=== PATIENT | female | born 2000 | race Two or more races ===

== ENCOUNTER 2023-02-28 16:45 | Emergency (ER) | payer MEDICAID, SELFPAY ==
[2023-02-28 16:47] VITALS: BP 110/75; PULSE 152; RESP 20; TEMP 37.2; O2SAT 99
--- NOTE | 2023-02-28 17:29 | ED_ITS ---
HPI - Wound/Laceration General Chief Complaint: Wound/Laceration Stated Complaint: WOUND CHECK Time Seen by Provider: 02/28/23 16:52 Source: caregiver and other Source comment: EMS Mode of arrival: ambulance Limitations: other Limitations comment: PT HAS CEREBRAL PALSY. NONVERBAL History of Present Illness HPI narrative: 22-year-old patient from a special care facility for evaluation of a wound from surgery that she had recently. 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 She has when necessary meds. They sent her here because the dressings appeared to be bleeding from the wound. No other information was provided until the aunt got here. She is scheduled for recheck this coming week I believe. There is no perioperative complications at the area was aware of Related Data Allergies Allergy/AdvReac Type Severity Reaction Status Date / Time No Known Drug Allergies Allergy Verified 02/28/23 17:21 PFSH PFS Social History Smoking status: Unknown if ever smoked Exam Narrative Exam Narrative: on arrival she was somewhat agitated just from the transportation here. She was immediately evaluated by myself, turning her on her left side in looking at this extensive surgical incision extending from the thoracic all the way down to the lumbar area. There is no wound dehiscence. Her vital signs were stable with her showing no fever but her heart rate was up initially at 152. There is a very small amount of pinkish colored fluid coming from the lower 3rd of the incision that is consistent with normal postoperative fluid extravasation through her wound. Again there is no dehiscence. There is no fluid pockets palpated as I examine the length of the incision. There is no active bleeding, no clots no bright red blood or dark red blood. There is no evidence of synovitis of the skin. When her and arrived she informs me that this patient is at baseline neurologic: Cognitive functioning. She is smiling and pleasant appears in no discomfort wanted and arrived and we reassured her. A baseline CBC was done I do not leave there is any emergency medical condition and we will discharge her but they're to do frequent dressing changes. Constitutional Vital Signs - 24 hr 02/28/23 16:47 Temperature 99 F Pulse Rate [Monitor] 152 H Respiratory Rate 20 Blood Pressure [Left Arm] 110/75 Pulse Oximetry 99 Oxygen Delivery Method Room Air Course Vital Signs Vital signs: Vital Signs Temperature 99 F 02/28/23 16:47 Pulse Rate 152 H 02/28/23 16:47 Respiratory Rate 20 02/28/23 16:47 Blood Pressure 110/75 02/28/23 16:47 Pulse Oximetry 99 02/28/23 16:47 Oxygen Delivery Method Room Air 02/28/23 16:47 Temperature 99 F 02/28/23 16:47 Pulse Rate 152 H 02/28/23 16:47 Respiratory Rate 20 02/28/23 16:47 Blood Pressure 110/75 02/28/23 16:47 Pulse Oximetry 99 02/28/23 16:47 Oxygen Delivery Method Room Air 02/28/23 16:47 Discharge Plan Discharge Chief Complaint: Wound/Laceration Clinical Impression: Healing of postoperative wound Patient Disposition: Home, Self-Care Time of Disposition Decision: 17:35 Additional Instructions: change dressings frequently to prevent tissue breakdown. Continue previous meds Stand Alone Forms: Portal Instructions Referrals: [facility] [Primary Care Provider] - 1 week
--- NOTE | 2023-02-28 17:43 | PC.NURSE ---
Patient is nonverbal. appears well taken care of based off appearance and skin assessment
--- NOTE | 2023-02-28 17:44 | PC.NURSE ---
patient brought to ER for wound check. patient had spinal surgery at [facility] 02/17/23 to correct scoliosis. patient is non-verbal. physician at bedside to assess wound. wound is from low neck, down spinal cord to bottom of sacrum. drainage is serosangeous, old pads are saturated. blood pressure within normal limits. patient is yelling, tearful, appears fearful of staff. . physican note that wound looks appropriate, normal post surgical drainage. bandage changed, steristrips applied, abd dressing applied.
[2023-02-28 18:09] VITALS: BP 113/73
[2023-02-28 18:15] LABS: Basophils Percent Auto 0.2 % (0.2-2.0); Eosinophils Percent Auto 0.2 % (0.9-7.0); Hematocrit 27.2 % (36.0-48.0); Immature Granulocytes Abs Auto 0.05 10^3/uL (0.00-0.03); Immature Granulocytes Pct Auto 0.8 % (0.0-0.5); Lymphocytes Absolute Auto 0.6 10^3/uL (1.2-3.8); Lymphocytes Percent Auto 9.2 % (20.5-60.0); Mean Corpuscular HGB Conc 33.1 g/dL (29.9-35.2); Mean Corpuscular Hemoglobin 29.1 pg (26.7-34.0); Mean Platelet Volume 8.7 fL (9.5-13.5); Monocytes Absolute Auto 0.5 10^3/uL (0.3-0.8); Neutrophils Absolute Auto 5.4 10^3/uL (1.4-6.5); Neutrophils Percent Auto 81.6 % (43.0-75.0); Platelet Count 394 10^3/uL (150-450); Red Blood Count 3.09 10^6/uL (4.20-5.40); Red Cell Distribution Width 13.4 % (11.0-15.0); White Blood Count 6.7 10^3/uL (4.0-11.0)
[2023-02-28 18:36] LABS: Scan Results NEGATIVE
[2023-02-28 18:41] VITALS: BP 108/68
--- NOTE | 2023-02-28 18:51 | PC.NURSE ---
no signs of infection, incision edges well approximated. no sign of dehiscence, clean and dry with serosanguineous drainage.
== END 2023-02-28 19:18 | disposition home or self-care (01) ==
PROVIDERS: Emergency Provider Emergency Medicine Emergency Medical Services
DX: Z09 Encounter for follow-up examination after completed treatment for conditions other than malignant neoplasm (principal); G80.9 Cerebral palsy, unspecified; F79 Unspecified intellectual disabilities
CPT/HCPCS: 36415; 85025; 99284; J1170